=== PATIENT | male | born 1940 | race Caucasian/White ===

== ENCOUNTER 2016-04-29 05:19 | Inpatient (IN) | payer MEDICARE ==
--- NOTE | 2016-04-23 11:55 | HP ---
PATIENT: DIONNA HOSKINS MEDICAL RECORD: [id number] ACCOUNT: [id number] LOCATION:[facility] : 39 ADMISSION DATE: 04/29/16 HISTORY AND PHYSICAL EXAMINATION DIONNA Fernandez (75yo, M) ID# [id number]. Date/Time04/13/2016 11:[id number] 1939[facility] Dept.NPP_[place] ClinicProviPiedmont Fayette HospitalJOSE DIXON MDInsuranceMed Primary: [facility] Insurance # : [id number] Policy/Group # : [id number] Referring Provider Name : AMAURI MATT Employer Name : RETIRED Prescription: ORX - Member is eligible. Chief Complaint atherosclerosis of arteries of extremities CTA AFRO Patient's Care Team Referring Provider (): AMAURI MATT: [address] [place] [id number], , Patient's Pharmacies [facility] ([facility]): [address] [place] [address] [phone] [facility] [phone], , Vitals BP:140/80 sitting R arm 04/13/2016 11:08 am 150/82 sitting L arm 04/13/2016 11:08 amHR:66R/R 04/13/2016 11:08 amHt:5 ft 8 in 04/13/2016 11:08 amWt:142 lbs 04/13/2016 11:06 amBMI:21.6 04/13/2016 11:08 amAllergies Reviewed Allergies NKDAMedications Reviewed Medications Cipro 500 mg tablet Take 1 tablet(s) every 12 hours by oral route.04/11/16 enteredKathy Wilsondiclofenac potassium 50 mg tablet Take 1 tablet(s) twice a day by oral route as needed.04/11/16 enteredKathy Wilsondiclofenac sodium 75 mg tablet,delayed release one tab twice daily03/11/16 filledPRESCRIPTION SOLUTIONSFluzone High-Dose [id number] (PF) 180 mcg/0.5 mL intramuscular syringe ADM 0.5ML IM UTD103/20/15 filledPRESCRIPTION SOLUTIONSglipiZIDE ER 10 mg tablet, extended release 24 hr one tab before jmszcyvpo23/14/16 filledPRESCRIPTION SOLUTIONSmetFORMIN 1,000 mg tablet one tab twice daily10/19/15 filledPRESCRIPTION SOLUTIONSOneTouch Delica Lancets 33 gauge04/04/16 filledPRESCRIPTION SOLUTIONSOneTouch Ultra Test xbihox01/14/17 filledPRESCRIPTION SOLUTIONSOneTouch Ultra2 kit04/24/15 filledPRESCRIPTION SOLUTIONSpravastatin 40 mg tablet one tab at jmczolb32/13/16 filledPRESCRIPTION SOLUTIONS Problems Reviewed Problems Atherosclerosis of arteries of the extremities - Onset: 04/11/2016, Bilateral Family History Discussed Family History Social History Discussed Social History Cardiology HISTORY AND PHYSICAL [id number] DIONNA HOSKINS Smoking Status: Former smoker High Cholesterol: Y Overweight: N Obese: N Diabetes: Y Surgical History Reviewed Surgical History Past Medical History Discussed Past Medical History Circulation Problems: Y Diabetes: Y Peripheral Vascular Disease (PVD): Y Notes: high cholesterol, active cellulitis L foot 04/11/16 Documents for Discussion N/A Screening None recorded. HPI Peripheral Vascular Disease Reported by patient. Location: calf ("left leg hurts at rest and when I am using it."); foot ("left 4th toe has healing sore") Quality: cramping; burning Severity: interferes with normal activity previous ulceration left foot Respiratory left foot Left hip and thigh pain Inability to ambulate more than a few feet ROS Patient reports exercise intolerance but reports no fever, no night sweats, no significant weight gain, and no significant weight loss. He reports cough but reports no wheezing, no shortness of breath, and no coughing up blood. He reports muscle aches, muscle weakness, and arthralgias/joint pain but reports no back pain and no swelling in the extremities. He reports numbness (peripheral neuropathy) but reports no loss of consciousness, no weakness, no seizures, no dizziness, and no headaches. He reports fatigue. He reports no dry eyes, no irritat ion, and no vision change. He reports no difficulty hearing and no ear pain. He reports no frequent nosebleeds and no nose/sinus problems. He reports no sore throat, no bleeding gums, no snoring, no dry mouth, no mouth ulcers, no oral abnormalities, and n o teeth problems. He reports no jugular vein distension and no swollen glands. He reports no chest pain, no arm pain on exertion, no shortness of breath when walking, no shortness of breath when lying down, no palpitations, and no known heart murmur. He re p orts no abdominal pain, no vomiting, normal appetite, no diarrhea, not vomiting blood, no nausea, and no constipation. He reports no incontinence, no difficulty urinating, no hematuria, and no increased frequency. He reports no abnormal mole, no jaundice, and no rashes. He reports no depression, no sleep disturbances, feeling safe in relationship, and no alcohol abuse. He reports no swollen glands and no bruising. He reports no runny nose, no sinus pressure, no itching, no hives, and no frequent sneezing. ROS as noted in the HPI Physical Exam Patient is a 75-year-old male. Constitutional: General Appearance healthy-appearing and thin. Level of Distress HISTORY AND PHYSICAL [id number] DIONNA HOSKINS. Ambulation ambulation with cane. Cardiovascular: Apical Impulse not displaced or no thrill. Heart A uscultation normal s1 and s2; no murmurs, rubs, or gallops; and RRR. Arterial Pulses no abdominal aorta bruits, femoral bruits, or popliteal bruits; femoral diminished (right) and not palpable (the left); popliteal not palpable (the left) and dorsalis pedis not palpable (bilaterally); and 2+ bilateral, carotid 2+ bilateral, and femoral 2+ bilateral. Edema no edema or varicosities. Lungs: Repiratory Effort no dyspnea. Percussion no dullness or flatness and hyperresonance . Auscultation no wheezing, rhonchi, or rales / crackles and breathing sounds normal, good air movement, and CTA except as noted. Abdomen: Bowl Sounds normal. Inspection and Palpation no tenderness, guarding, masses, or rebound tenderness and soft and non-distended. Liver non-tender and no hepatomegaly. Spleen non-tender and no splenomegaly. Hernia none palpable. Musculoskeletal System: Gait And Stance normal gait and stance and wide-based. Digits and Nails normal nails, no cyanosis, and abnormal nails. Joints, Bones, and Muscles limited ROM and abnormal strength. Neurologic: Cranial Nerves grossly intact. Reflexes DTRs 2+ bilaterally throughout. Sensation abnormal (lower extremity peripheral neuropathy). Lymph Nodes: Lymph Nodes no cervical LAD, supraclavicular LAD, axillary LAD, or inguinal LAD. Eyes: Lids and Conjunctivae no discharge or pallor and non-injected. Pupils PERRLA. Cornea grossly intact. EOM EOMI. Lens clear. Sclerae non-icteric. Neck: Neck no masses, enlarged lymph nodes, or carotid bruits and supple and trachea midline. Thyroid no enlargement or nodules and non-tender. Skin: Inspection and Palpation no rash, lesions, ulcers, jaundice, or abnormal nevi. Assessment / Plan atherosclerosis lower extremity with rest pain 1. Atherosclerosis of arteries of the extremities I70.223: Atherosclerosis of [place] arteries of extremities with rest pain, bilateral legs 2. 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
[2016-04-28 15:19] LABS: HEMATOCRIT 37.9 % (42.0-54.0); HEMOGLOBIN 12.6 g/dL (13.5-17.5); MCH 31.2 pg (26.0-34.0); MCHC 33.2 g/dL (31.0-37.0); MCV 93.8 fL (80.0-100.0); MEAN PLATELET VOLUME 9.2 fL (7.4-10.4); RBC 4.04 10x6/uL (4.20-6.10); RDW 13.4 % (11.5-14.5); WBC 6.1 10x3/uL (4.8-10.8)
[2016-04-28 15:25] LABS: APPEARANCE CLEAR (CLEAR); COLOR YELLOW (YELLOW); GLUCOSE 100 mg/dL (NEGATIVE); LEUKOCYTE ESTERASE NEGATIVE (NEGATIVE); NITRITE NEGATIVE (NEGATIVE); PROTEIN NEGATIVE (NEGATIVE); SPECIFIC GRAVITY 1.015 (1.005-1.020)
[2016-04-28 15:26] LABS: BILIRUBIN NEGATIVE (NEGATIVE); KETONE NEGATIVE (NEGATIVE); UROBILINOGEN NORMAL (NORMAL)
[2016-04-28 15:32] LABS: INR 1.04 (0.85-1.17); PROTIME 13.4 SECONDS (11.6-15.0)
[2016-04-28 15:34] LABS: ALBUMIN 4.1 g/dL (3.4-5.0); ALKALINE PHOSPHATASE 65 U/L (46-116); ALT (SGPT) 11 U/L (10-68); BILIRUBIN - TOTAL 0.33 mg/dL (0.2-1.3); CALC OSMOLALITY 286 mosm/kg (275-300); CARBON DIOXIDE 28.8 mmol/L (21.0-32.0); CHLORIDE - SERUM 102 mmol/L (98-107); CREATININE - SERUM 0.9 mg/dL (0.6-1.3); GLUCOSE 176 mg/dL (74-106); POTASSIUM - SERUM 4.6 mmol/L (3.5-5.1); PROTEIN - SERUM 7.1 g/dL (6.4-8.2); SODIUM 140 mmol/L (136-145); UREA NITROGEN 23 mg/dL (7-18); eGFR NON AFRICAN AMERICAN 87 mL/min (90-120)
[~2016-04-29] VITALS: Ht 172.7 cm; Wt 69.4 kg
[2016-04-29] VITALS (43 sets, daily range): BP systolic 111–156; BP diastolic 43–74; BMI 21.6; BMI 23.3
[~2016-04-29 05:19] MED LIST: BAYER CHEWABLE81 MG PO; GLUCOPHAGE1000 MG PO; GLUCOTROL XL 1010 MG PO; MAGNESIUM OXID250 MG PO; MULTIPLE VITAMI1 TA1 PO; MUPIROCIN22 GM TOPICAL; PRAVACHOL40 MG PO; VITAMIN B COMPL1 TAB PO; VOLTAREN75 MG PO
[2016-04-29] MEDS ORDERED: GABAPENTIN100 MG PO (05:33)
--- NOTE | 2016-04-29 13:50 | NUR ---
PT ARRIVED TO UNIT VIA BED. PT IS AWAKE, ANSWERS APPROPRIATELY. ON 10L SIMPLE MASK. HAS CRITICORE STEPHENS. LIGHT YELLOW URINE. PT HAS DRESSING TO LEFT GROIN. INTACT. NO EVIDENCE OF BLEEDING OR SWELLING. ICE PACK PLACED. PEDAL PULSES DETECTED BY DOPPLER. NS RUNNING AT 150ML. NO OTHER DRIPS AT THIS TIME. HAS RIGHT RADIAL ART LINE. BP IS 147/62. HR 90. CVP 6. SATS 97%. RESP 11.
--- NOTE | 2016-04-29 14:10 | NUR ---
HEELS BRIDGED. NO SCD'S OR SANGEETHA'S.
[2016-04-29 14:41] LABS: HEMATOCRIT 31.6 % (42.0-54.0); HEMOGLOBIN 10.4 g/dL (13.5-17.5)
--- NOTE | 2016-04-29 15:13 | NUR ---
FAMILY AT BEDSIDE. PT C/O "SORENESS" AT LEFT SIDE/UPPER ABDOMEN.
--- NOTE | 2016-04-29 15:22 | NUR ---
PEDAL PULSES PALPABLE BILATERALLY
--- NOTE | 2016-04-29 17:00 | NUR ---
PT AWAKE. DINNER TRAY OFFERED. DENTURES PLACED IN MOUTH. PT ATE ABOUT 25% OF DINNER. VERY CONVERSANT AT THIS TIME.
--- NOTE | 2016-04-29 18:00 | NUR ---
INCENTIVE SPIROMETRY PERFORMED. PT REACHED 2,000 AND 2,250.
--- NOTE | 2016-04-29 18:03 | NUR ---
PT RESTING QUIETLY. REQUESTED SOME DECAF COFFEE. A CUP WAS PROVIDED TO HIM. HE DENIES ANY OTHER NEEDS AT THIS TIME. BP 122/46. HR 105
--- NOTE | 2016-04-29 18:45 | NUR ---
DR DIXON CALLED, HAS REVIEWED PT XRAY FROM THIS EVENING. SAYS LOOKS GOOD. PT AND FAMILY NOTIFIED IMAGING IS GOOD.
--- NOTE | 2016-04-29 19:00 | NUR ---
PT AOX4, BEDREST WITH LEGS STRAIGHT AT THIS TIME. HOB 27 DEGREES. LT GROIN WITH DSG CDI, NO S/S OF HEMATOMA. PEDAL PULSES PRESENT. HR 97 ON MONITOR, NSR WITH FIRST DEGREE BLOCK. CLEVIPREX INFUSING TO MAINTAIN BP WITHIN GIVEN PARAMETERS. LUNG SOUNDS CLEAR/DIMINISHED WITH LT LOWER LOBE SOUNDS ABSENT. STEPHENS CATH INTACT WITH CLEAR YELLOW URINE TO BEDSIDE DRAINAGE. DENIES NEEDS AT THIS TIME. CALL LIGHT WITHIN PT REACH. ROOM VISIBLE FROM NURSES STATION. CPOC.
--- NOTE | 2016-04-29 21:10 | NUR ---
NO VISITORS AT THIS TIME. FAMILY UPDATE GIVEN VIA PHONE CALL. HS MEDS GIVEN. FRESH WATER TO BEDSIDE. LT GROIN SOFT, NO S/S OF HEMATOMA. PEDAL PULSES PRESENT. VOICES NO FURTHER NEEDS AT THIS TIME. CALL LIGHT AND BEDSIDE TABLE WITHIN PT REACH. CPOC.
--- NOTE | 2016-04-29 23:00 | NUR ---
REASSESSMENT COMPLETE, SEE FLOWSHEET FOR ALL FINDINGS. LT GROIN SOFT, NO S/S OF HEMATOMA. PEDAL PULSES PRESENT. PT REPOSITIONED FOR COMFORT WITH MINIMAL ASSISTANCE. NO C/O PAIN AT THIS TIME. VOICES NO FURTHER NEEDS. CALL LIGHT AND BEDSIDE TABLE WITHIN PT REACH. CPOC.
[2016-04-30] VITALS (89 sets, daily range): BP systolic 106–149; BP diastolic 43–81
--- NOTE | 2016-04-30 01:11 | NUR ---
PT SLEEPING QUIETLY WITH VSS, NO S/S OF PAIN OR ACUTE DISTRESS. PT ALLOWED TO CONTINUE SLEEPING UNDISTURBED AT THIS TIME. CALL LIGHT AND BEDSIDE TABLE WITHIN PT REACH. CPOC.
--- NOTE | 2016-04-30 03:16 | NUR ---
REASSESSMENT COMPLETE, SEE FLOWSHEET FOR ALL FINDINGS. SHALLOW RESPIRATIONS, DIMINISHED LUNG SOUNDS. NSR ON MONITOR. CLEVIPREX REMAINS INFUSING. LT GROIN SOFT, NO S/S OF HEMATOMA. PEDAL PULSES PRESENT. NO C/O PAIN AT THIS TIME. REQUIRES MINIMAL ASSISTANCE REPOSITIONING FOR COMFORT. HOB @ 30 DEGREES. VOICES NO FURTHER NEEDS AT THIS TIME. CALL LIGHT AND BEDSIDE TABLE WITHIN PT REACH. CPOC.
--- NOTE | 2016-04-30 04:15 | NUR ---
FRESH COFFEE TO BEDSIDE PER REQUEST. IS WITH GOOD EFFORT REACHING 2500. NO C/O PAIN AT THIS TIME. PARTIAL LINEN CHANGE. DENIES FUTHER NEEDS AT THIS TIME. CALL LIGHT AND BEDSIDE TABLE WITHIN PT REACH. CPOC.
[2016-04-30 06:07] LABS: HEMATOCRIT 31.3 % (42.0-54.0); HEMOGLOBIN 10.2 g/dL (13.5-17.5); MCHC 32.6 g/dL (31.0-37.0); MCV 95.1 fL (80.0-100.0); MEAN PLATELET VOLUME 9.2 fL (7.4-10.4); RBC 3.29 10x6/uL (4.20-6.10); RDW 13.7 % (11.5-14.5); WBC 7.3 10x3/uL (4.8-10.8)
[2016-04-30 06:21] LABS: ALBUMIN 3.1 g/dL (3.4-5.0); ALKALINE PHOSPHATASE 44 U/L (46-116); ALT (SGPT) 12 U/L (10-68); BILIRUBIN - TOTAL 0.44 mg/dL (0.2-1.3); CALC OSMOLALITY 284 mosm/kg (275-300); CALCIUM 7.7 mg/dL (8.5-10.1); CARBON DIOXIDE 30.6 mmol/L (21.0-32.0); CHLORIDE - SERUM 106 mmol/L (98-107); CREATININE - SERUM 0.7 mg/dL (0.6-1.3); GLUCOSE 122 mg/dL (74-106); PROTEIN - SERUM 5.6 g/dL (6.4-8.2); SODIUM 143 mmol/L (136-145); UREA NITROGEN 9 mg/dL (7-18); eGFR NON AFRICAN AMERICAN > 90 mL/min (90-120)
--- NOTE | 2016-04-30 07:05 | NUR ---
REPORT RECD PT CARE ASSUMED. PT ALERT AND ORIENTED X 4. S1S2 NOTED, 1ST DEGREE BLOCK NOTED. LUNG SOUNDS CLEAR BILAT, PT HAS NC @ 4L. PT HAS INCISION SITE TO LEFT GROIN. SITE IS SUPPLE NO ECCYMOSIS/HEMATOMA NOTED. DRSG CDI. PP TO RIGHT LEG DOPPLERED. LEG IS WARM, PINK, CMS INTACT. PT HAS RT RADIAL ART LINE, GOOD WAVE FORM, CMS INTACT TO RT EXTREMITY. STEPHENS D/C AT THIS TIME. HOB ELEVATED < 30 DEGREES. PT HAS CLEVIPREX INFUSING AT 7 MG/HR, WILL TITRATE PER ORDERS.
--- NOTE | 2016-04-30 07:35 | NUR ---
PT BREAKFAST TRAY PROVIDED. PT PULLED UP IN BED FOR COMFORT. PT CONSUMES 65% OF BREAKFAST.
--- NOTE | 2016-04-30 08:00 | NUR ---
PT DOES WELL WITH IS. GOOD EFFORT, MAX OF 2300
--- NOTE | 2016-04-30 09:00 | NUR ---
A-LINE REMOVED AT THIS TIME. EXTREMITY ELEVATED AND PRESSURE HELD. CLEAN DRSG APPLIED. DRESSING TO GROIN CHANGED AT THIS TIME. PT AT BEDSIDE FOR VISITATION.
--- NOTE | 2016-04-30 11:53 | NUR ---
PT UP WITH PHYSICAL THERAPY. PT AMBULATES ABOUT 110FT. PT SITTING UP IN CHAIR AT THIS TIME.
--- NOTE | 2016-04-30 13:38 | OP ---
PATIENT NAME: DIONNA HOSKINS MEDICAL RECORD: [id number] :38 LOCATION:[facility] ADMISSION DATE:04/29/16 SURGEON: SALOMON DIXON MD DATE OF OPERATION: 04/29/2016 SURGEON: Salomon Dixon MD. ANESTHESIA: General endotracheal by Dr. Leigh. OPERATION PERFORMED: 1. Left common femoral and profunda femoral endarterectomy with patch angioplasty. 2. Right retrograde, 4-V[place] Citizen, 6-V[place] Citizen sheath placed in the common femoral artery. 3. Retrograde, 4-Vatican Citizen 7-Vatican Citizen external iliac artery sheath placement. 4. Right retrograde external iliac arteriogram. 5. Left retrograde external iliac arteriogram. 6. 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 7. Aortogram. 8. Angioplasty left common iliac artery and external iliac artery utilizing a 4-mm balloon. 9. Angioplasty of the left common iliac artery and external iliac artery with a 6-V[place] Citizen balloon. 10. Kissing stent right common iliac artery 7 x 39, left common iliac artery 7 x 59. 11. Left external iliac artery SMART stent 8 x 60. 12. Left superficial femoral sheath placement. 13. Left superficial femoral artery arteriogram. 14. Diamondback atherectomy, left superficial femoral artery. 15. Drug-coated balloon 5 x 150, left superficial femoral artery. 16. Superficial femoral arteriogram demonstrates good flow from the common femoral artery to the trifurcation vessels below the knee. 17. Patch angioplasty left common femoral, superficial femoral and external iliac artery. PREOPERATIVE DIAGNOSIS: Severe atherosclerosis of the left and right lower extremity with rest pain and ulceration. POSTOPERATIVE DIAGNOSES: 1. Total occlusion of the left common iliac artery and high-grade stenosis of the right common iliac artery. 2. Severe stenosis of the left external iliac artery. 3. 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 4. High-grade stenosis of the left superficial femoral artery. INDICATION FOR OPERATION: Rest pain and ulceration. FLUOROSCOPY TIME: 16 minutes 48 seconds. CONTRAST: 117 mL. FINDINGS OF THE OPERATION: 1. Right external iliac arteriogram demonstrates diffuse disease with severe stenosis at the takeoff of the right common iliac artery. OPERATIVE REPORT [id number] DIONNA HOSKINS 2. Left retrograde external iliac arteriogram demonstrates total occlusion of the left common iliac artery and high-grade stenoses in the left external iliac artery. 3. 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 4. Aortogram. 5. Angioplasty 4-[place] Citizen balloon, left external iliac artery and left common iliac artery. 6. Angioplasty 6 mm balloon, left external iliac artery and left common iliac artery. 7. Bilateral kissing stents 7 x 39 on the right and a 7 x 159 on the left demonstrates good open bifurcation with good flow into the external iliacs bilaterally. The left external iliac artery had high-grade stenosis. 8. An 8 x 60 SMART stent placed in the left external iliac artery demonstrates good result with no residual stenosis. 9. Left superficial femoral arteriogram demonstrates high-grade stenosis in its mid portion and diffuse disease to the adductor canal with flow to the trifurcation vessels. 10. Status post Diamondback atherectomy demonstrates much improved flow through the area; however, suboptimal, therefore, a 5 x 150 drug-coated balloon was used to dilate the distal superficial femoral artery and high-grade stenosis with no residual stenotic areas. ESTIMATED BLOOD LOSS: Less than 200 mL DESCRIPTION OF PROCEDURE: After informed consent and adequate preoperative medication evaluation, the patient was brought to the operating room, placed on the table in the supine position. After induction of general endotracheal anesthesia and application of appropriate monitoring devices, the abdomen, groins and left leg were prepped and draped in a sterile field utilizing Betadine scrub, alcohol and Betadine solution. A Betadine-impregnated drape was also used. An oblique incision was made above the inguinal ligament on the left, dissection carried down to fascia. Hemostasis maintained with electrocautery. The external iliac, common femoral, profunda femoral and superficial femoral arteries were dissected free of surrounding structures and encircled with vessel loops. Attention was then turned toward the right groin. Utilizing a micropuncture technique, a 4-[place] Citizen sheath was placed in the right common femoral artery retrogradely. This was exchanged for a 6-[place] Citizen sheath. A retrograde arteriogram demonstrates the stenotic area at the takeoff of the aorta and right common iliac artery. Attention was then turned back toward the left groin and the patient had been given a calculated dose of protamine the sheath was placed and the left external iliac artery was accessed with a micropuncture technique and a 4-[place] Citizen sheath partially placed in the artery due to obstruction and retrograde arteriogram was obtained. Utilizing a [place] floppy wire and multiple attempts, a wire was manipulated into the aorta. A 4-mm balloon was then used to dilate bareback from the bifurcation of the aorta to the groin. An arteriogram was performed, a 6-[place] Citizen balloon was then used to dilate the left common iliac and external iliac artery. Exchanges were made for Amplatz wires bilaterally utilizing the balloon expandable stents. They were placed at the aortic bifurcation and inflated, arteriogram demonstrated good position and no residual stenosis. Attention was then turned toward the left external iliac artery, there was still diffuse high grade disease; therefore, an 8 x 60 SMART stent was deployed from the previous stent into the external iliac artery, post-dilation demonstrated no residual stenosis. Attention was then turned below the common femoral and profunda femoral arteries, which were chronically occluded. A puncture was made of the superficial femoral artery, a OPERATIVE REPORT [id number] DIONNA HOSKINS 4-V[place] Citizen sheath placed and arteriogram demonstrated the anatomy and a 5-[place] Citizen sheath placed. An arteriogram was performed that demonstrated high-grade stenosis in the mid superficial femoral artery and diffuse disease to the adductor canal. A wire was manipulated into the distal infrageniculate vessels on the left and a 0.035 catheter was placed followed by exchange for a Viper wire. Utilizing the Diamondback, an atherectomy was performed in the mid and distal superficial femoral artery to the level of the adductor canal. This greatly improved flow; however, was suboptimal. A 5 x 150 drug-coated balloon was then used to dilate the superficial femoral artery with a good result. Attention was then turned toward the left groin. The sheath wires and catheters were removed and clamps were applied to the distal iliac artery on the left and superficial femoral artery. The arteriotomy was made and extended with Gutierrez scissors. The artery was totally occluded at the common femoral artery and profunda femoral artery. Utilizing sharp dissection, the endarterectomy was performed with removal of plaque from the superficial femoral artery, profunda femoral artery, common femoral artery and left external iliac artery. Artery underwent extensive debridement and irrigation. Utilizing a CorMatrix vascular patch and a running 6-0 Prolene suture, the arteriotomy was closed with a patch angioplasty technique. All maneuvers to remove trapped air were performed. The clamps were removed sequentially. The patient was given a calculated dose of protamine to reverse the heparin. Hemostasis was achieved. The wound was irrigated with copious amounts of antibiotic solution and normal saline. There was excellent flow through the vessels by Doppler. The wound was again irrigated. Instrument count and sponge count were correct times 2. Wounds were closed in layers utilizing 2-0 Vicryl on deep subcutaneous tissue, 3-0 Vicryl on superficial subcutaneous tissues. Skin approximated with 5-0 subcuticular Monocryl. Sterile dressings were applied. The patient tolerated the procedure well and was transferred to the cardiovascular ICU in stable condition. 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
--- NOTE | 2016-04-30 14:33 | NUR ---
PT REMAINS SITTING UP IN CHAIR. PT PROVIDED WITH COFFEE AND WARM BLANKET. NO OTHER REQUESTS OR COMPLAINTS AT THIS TIME. VSS.
--- NOTE | 2016-04-30 15:15 | NUR ---
PT ASSISTED BACK TO BED AT THIS TIME. FAMILY AT BEDSIDE FOR VISIATION. CLEVIPREX OFF AT THIS TIME. WILL MONITOR BP.
--- NOTE | 2016-04-30 16:35 | NUR ---
PT AMBULATES WITH PT AND IS UP TO CHAIR TO EAT DINNER.
--- NOTE | 2016-04-30 18:00 | NUR ---
PT ASSISTED BACK TO BED.
--- NOTE | 2016-04-30 19:00 | NUR ---
PT AOX4. RESTING COMFORTABLY. UNLABORED RESPIRATIONS, 4L O2, SPO2 97. NSR ON MONITOR. LT GROIN SOFT WITH NO S/S OF HEMATOMA, DSG CDI. PEDAL PULSES PRESENT. CLEVIPREX CURRENTLY INFUSING TO MAINTAIN BP WITHIN GIVEN PARAMETERS. PT REPOSITIONS SELF IN BED INDEPENDENTLY. PARTIAL LINEN CHANGE COMPLETE. VOICES NO FURTHER NEEDS AT THIS TIME. CALL LIGHT AND BEDSIDE TABLE WITHIN PT REACH. CPOC.
--- NOTE | 2016-04-30 21:05 | NUR ---
HS MEDS GIVEN. FRESH WATER TO BEDSIDE. FAMILY UPDATED VIA PHONE. VSS. DENIES PAIN AT THIS TIME. DENIES FURTHER NEEDS AT THIS TIME. CALL LIGHT AND BEDSIDE TABLE WITHIN PT REACH. CPOC.
--- NOTE | 2016-04-30 23:00 | NUR ---
REASSESSMENT COMPLETE, SEE FLOWSHEET FOR ALL FINDINGS. PT RESTING COMFORTABLY. UNLABORED RESPIRATIONS. LT GROIN SOFT, NO S/S OF HEMATOMA. PEDAL PULSES PRESENT. DENIES PAIN AT THIS TIME. DENIES FURTHER NEEDS AT THIS TIME. CALL LIGHT AND BEDSIDE TABLE WITHIN PT REACH. CPOC.
[2016-05-01] VITALS (25 sets, daily range): BP systolic 20–142; BP diastolic 45–85
--- NOTE | 2016-05-01 01:00 | NUR ---
PT SLEEPING QUIETLY WITH UNLABORED RESPIRATIONS. NO S/S OF PAIN OR ACUTE DISTRESS NOTED AT THIS TIME. VSS. PT ALLOWED TO CONTINUE SLEEPING UNDISTURBED AT THIS TIME. CPOC.
--- NOTE | 2016-05-01 03:33 | NUR ---
REASSESSMENT COMPLETE, SEE FLOWSHEET FOR ALL FINDINGS. VSS, NO S/S OF PAIN. LT GROIN SOFT, NO S/S HEMATOMA. PEDAL PULSES PRESENT. PT REPOSITIONED FOR COMFORT. NO S/S OF ACUTE DISTRESS NOTED. IS WITH GOOD EFFORT, PULLLING 2000. DENEIS NEEDS AT THIS TIME. CALL LIGHT AND BEDSIDE TABLE WITHIN PT REACH. CPOC.
[2016-05-01 06:20] LABS: HEMATOCRIT 31.8 % (42.0-54.0); MCH 30.2 pg (26.0-34.0); MCHC 31.4 g/dL (31.0-37.0); MCV 96.1 fL (80.0-100.0); MEAN PLATELET VOLUME 9.2 fL (7.4-10.4); RBC 3.31 10x6/uL (4.20-6.10); RDW 13.7 % (11.5-14.5); WBC 7.3 10x3/uL (4.8-10.8)
--- NOTE | 2016-05-01 06:20 | NUR ---
PARTIAL LINEN CHANGE. VSS, DENIES PAIN. FRESH COFFEE TO BEDSIDE PER REQUEST. LT GROIN SOFT WITH NO S/S OF HEMATOMA. PEDAL PULSES PRESENT. DENIES FURTHER NEEDS AT THIS TIME. CALL LIGHT AND BEDSIDE TABLE WITHIN PT REACH. CPOC.
[2016-05-01 06:36] LABS: ALBUMIN 2.9 g/dL (3.4-5.0); ALKALINE PHOSPHATASE 53 U/L (46-116); ALT (SGPT) 12 U/L (10-68); CALCIUM 8.1 mg/dL (8.5-10.1); CARBON DIOXIDE 30.5 mmol/L (21.0-32.0); CHLORIDE - SERUM 108 mmol/L (98-107); PROTEIN - SERUM 5.7 g/dL (6.4-8.2); SODIUM 142 mmol/L (136-145); eGFR NON AFRICAN AMERICAN 87 mL/min (90-120)
[2016-05-01 06:37] LABS: CALC OSMOLALITY 286 mosm/kg (275-300); CREATININE - SERUM 0.9 mg/dL (0.6-1.3); GLUCOSE 179 mg/dL (74-106); UREA NITROGEN 12 mg/dL (7-18)
--- NOTE | 2016-05-01 07:00 | NUR ---
REPORT RECEIVED, PATIENT IN SEMIFOWLERS POSITION WATCHING TV. ASSESSMENT COMPLETED AT THIS TIME. ONLY REQUEST WAS FOR SOME DECAF COFFEE. THIS WAS OBTAINED FOR THE PATINET.
--- NOTE | 2016-05-01 08:04 | NUR ---
NORCO GIVEN FOR C/O DISCOMFORT (NOT PAIN, PER PATIENT). NOTED THAT B/P UP SLIGHTLY WITH "DISCOMFORT" WILL MONITOR AND IF SBP DOES NOT COME DOWN, WILL RESTART CLEVIPREX.
--- NOTE | 2016-05-01 09:03 | NUR ---
PATIENT UP AMBULATING WITH PHYSICAL THERAPY. WALKS WITH A SMALL LIMP, BUT OVERALL GAIT IS PRETTY STEADY. PATIENT TALKING HE WALKS, NO SHORTNESS OF BREATH NOTED. WALKING AT PATIENTS SIDE.
--- NOTE | 2016-05-01 09:13 | NUR ---
PATIENT AMBULATED 750 FT WITH PHYSICAL THERAPY, IS NOW SITTING IN CHAIR AT BEDSIDE TALKING WITH . LINENS CHANGED. PATIETN AND DENY NEEDS AT THIS TIME.
--- NOTE | 2016-05-01 13:00 | NUR ---
ANTONIO WITH PHYSICAL THERAPY TOOK PATIENT TO BATHROOM. PATIENT URINATED IN COMMODE INSTEAD OF USING THE URINAL. WILL DOCUMENT ONE VOID.
--- NOTE | 2016-05-01 13:20 | NUR ---
PATIENT RETURNED TO BED AFTER AMBULATING 750 FT WITH PHYSICAL THERAPY. PATIENT DENIES NEEDS AT THIS TIME. LEFT WATCHING TV AND DRINKING COFFEE.
--- NOTE | 2016-05-01 15:02 | NUR ---
PATIENTS AND 2 DAUGHTERS HERE. NO QUESTIONS VOICED AT THIS TIME. PATIENT VISITING WITH THEM AT BEDSIDE.
--- NOTE | 2016-05-01 15:31 | NUR ---
PATIENTS SATS DECREASE TO 90-91% ON 2L N/C AT REST . HAVE INCREASED IT BACK TO 3L. WILL TRY SOME LATER OR HAVE FILER HELPER SEE IF THEY ARE ABLE TO WEAN SOME SINCE PATIENT DOES NOT WEAR OXYGEN AT HOME.
--- NOTE | 2016-05-01 16:28 | NUR ---
PATIENT SITTING UP ON SIDE OF THE BED EATING DINNER. DENIES NEEDS AT THIS TIME.
--- NOTE | 2016-05-01 19:00 | NUR ---
REPORT RECEIVED AND ASSESSMENT COMPLETED. SEE FLOWSHEET FOR FULL DETAILS. VSS. WILL CONTINUE TO MONITOR.
--- NOTE | 2016-05-01 21:00 | NUR ---
2100 MEDS GIVEN. NO CHANGES IN STATUS AT THIS TIME. VSS. WILL CONTINUE TO MONITOR.
--- NOTE | 2016-05-01 23:10 | NUR ---
REASSESSMENT COMPLETED. SEE FLOWSHEET. NO CHANGES IN STATUS AT THIS TIME. VSS. WILL MONITOR.
[2016-05-02] VITALS (9 sets, daily range): BP systolic 118–142; BP diastolic 56–86; Ht 172.7 cm; Wt 69.4 kg
--- NOTE | 2016-05-02 01:40 | NUR ---
0130 PROTONIX GIVEN. ASSISTED PT TO BATHROOM. NO OTHER CHANGES AT THIS TIME. VSS. WILL CONTINUE TO MONITOR.
--- NOTE | 2016-05-02 03:39 | NUR ---
REASSESSMENT COMPLETED. SEE ASSESSMENT FOR FULL DETAILS. VSS. NO OTHER CHANGES AT THIS TIME. WILL CONTINUE TO MONITOR.
--- NOTE | 2016-05-02 05:39 | NUR ---
O2 DECREASED TO 2L FROM 3. O2 SAT STABLE AT 98%. NO OTHER CHANGES AT THIS TIME. VSS. WILL CONTINUE TO MONITOR.
--- NOTE | 2016-05-02 07:15 | NUR ---
REPORT RECIEVED FROM FILM REPLACEMENT ORDERER NURSE. PT RESTING IN BED QUIETLY. NO S/SX OF ACUTE DISTRESS NOTED. VSS ON CM. ASSESSMENT COMPLETE PER FLOWSHEET. PT ASSISTED TO RECLINER. WITH NO DIFFICULTIES. CALL LIGHT AND PERSONAL ITEMS PLACED IN REACH. WILL CONT TO ASSESS FOR CHANGES.
[2016-05-02] MEDS ORDERED: PLAVIX75 MG PO (08:52)
--- NOTE | 2016-05-02 09:00 | NUR ---
LUCI WITH PT AT BEDSIDE TO WALK PT. PORTABLE MONITOR PLACED ON PT. WILL MONITOR THROUGHOUT WALK.
--- NOTE | 2016-05-02 09:34 | NUR ---
JINNY BLEVINS AT BEDSIDE TO DISCUSS DISCHARGE.
--- NOTE | 2016-05-02 10:13 | NUR ---
Patient Name: DIONNA HOSKINS Admission Status: Elective Accout number: [id number] Admission Date: 04-29-2016 : 1939 Admission Diagnosis: Attending: ELMER Current LOS: 3 Anticipated DC Date: 05-02-2016 Planned Disposition: Home Primary Insurance: [facility] Is the patient Alert and Oriented? Yes * How many steps to enter\exit or inside your home? 17 STEPS INSIDE HOME--HAS STAIRCHAIR * PCP DR ROMERO IN [place] * Pharmacy [facility] * Preadmission Environment Home with Family * ADLs Independent * Equipment Cane AVAILABLE IF NEEDED Other * Other Equipment PT HAS ELECTRIC STAIR CHAIR-- * List name and contact numbers for known caregivers / representatives who currently or will assist patient after discharge: KAYY HOSKINS, SPOUSE, --CELL * Community resources currently utilized None * Additional services required to return to the preadmission environment? No * Can the patient safely return to the preadmission environment? Yes * Has this patient been hospitalized within the prior 30 days at any hospital? No Discharge Planning Comments: CM MET WITH PATIENT TO ASSESS DC PLAN/NEEDS. PT STATED HE LIVES AT HOME WITH HIS SPOUSE AND IS INDEPENDENT IN HIS CARE/ADL'S. HE STATED HE AMBULATES WITH NO ASSISTANCE. STATED HIS WILL DRIVE HIM HOME AT DC. HE STATED HE HAS NEVER USED HH OR REHAB SERVICES IN THE PAST AND DENIED NEED FOR HH, REHAB SERVICES OR ANY ADDITIONAL DME AT DISCHARGE. VOICED HIS HOME IS A SAFE PLACE AND PLANS TO RETURN HOME WITH SPOUSE AT D/C. DC IMM SIGNED AND PLACED IN PT'S CHART. CM WILL FOLLOW AND ASSIST WITH ANY DC NEEDS THEY ARISE. Waist Fitter: Dang Segura RN, CM
--- NOTE | 2016-05-02 10:35 | NUR ---
D/C INSRUCTIONS REVIEWED WITH PT. L-DLSC REMOVED PER ORDERS. NO COMPLICATIONS NOTED UPON REMOVAL. CATHETER INTACT.
== END 2016-05-02 10:38 | disposition home or self-care (01) | DRG 271 ==
LOC: D.CVICU 05:19 → D.SDCHOLD 05:19 → D.CVICU 13:49
PROVIDERS: ADMIT Internal Medicine Cardiovascular Disease
PROC: 04UL0JZ Supplement Left Femoral Artery with Synthetic Substitute, Open Approach (ICD-10-PCS; 2016-04-29)
PROC: 047D3DZ Dilation of Left Common Iliac Artery with Intraluminal Device, Percutaneous Approach (ICD-10-PCS; 2016-04-29)
PROC: 047C3DZ Dilation of Right Common Iliac Artery with Intraluminal Device, Percutaneous Approach (ICD-10-PCS; 2016-04-29)
PROC: 047J3DZ Dilation of Left External Iliac Artery with Intraluminal Device, Percutaneous Approach (ICD-10-PCS; 2016-04-29)
PROC: 047L3ZZ Dilation of Left Femoral Artery, Percutaneous Approach (ICD-10-PCS; 2016-04-29)
PROC: B4101ZZ Fluoroscopy of Abdominal Aorta using Low Osmolar Contrast (ICD-10-PCS; 2016-04-29)
PROC: 04CL3ZZ Extirpation of Matter from Left Femoral Artery, Percutaneous Approach (ICD-10-PCS; principal; 2016-04-29 07:30)
DX: I70.248 Atherosclerosis of native arteries of left leg with ulceration of other part of lower leg (principal); I74.5 Embolism and thrombosis of iliac artery; I70.92 Chronic total occlusion of artery of the extremities; E11.9 Type 2 diabetes mellitus without complications; E78.00 Pure hypercholesterolemia, unspecified

== ENCOUNTER → 2017-07-27 11:58 | Outpatient (CLI) | payer MEDICARE ==
[2016-05-02 09:06] VITALS: BMI 23.2
[~2017-07-27 11:58] MED LIST changes: +GABAPENTIN100 MG PO; +PLAVIX75 MG PO
== END | disposition home or self-care (01) ==
LOC: D.US 07-26 14:00
DX: I65.23 Occlusion and stenosis of bilateral carotid arteries (principal)

== ENCOUNTER 2019-06-07 09:02 | Inpatient (IN) | payer MEDICARE ==
[2019-06-07] VITALS (27 sets, daily range): BP systolic 76–114; BP diastolic 29–96; BMI 22.0
[~2019-06-07] VITALS: Ht 172.7 cm; Wt 65.9 kg
--- NOTE | ~2019-06-07 | OP ---
PATIENT NAME: DIONNA HOSKINS MEDICAL RECORD: [id number] :39 LOCATION:[facility] ADMISSION DATE:06/07/19 SURGEON: DEJON CASON MD DATE OF OPERATION: 06/07/2019 PROCEDURES: 1. PTCA stent LAD. 2. PTCA stent left circumflex. 3. Left heart catheterization. 4. Selective coronary angiography. 5. Left ventriculogram. INDICATION: Angina and coronary artery disease. PROCEDURE IN DETAIL: After informed consent was obtained, after detailed description of risks, benefits as well as alternative therapies, the patient elected to proceed with angiogram and angioplasty. The right femoral area was prepped and draped in normal sterile fashion. Right femoral artery was cannulated via modified Seldinger technique with placement of 7-Canadian sheath. All catheters exchanged through this sheath. FINDINGS: The left ventriculogram was performed in the standard 30-degree PORTER view reveals global hypokinesis, ejection fraction is 30%. SELECTIVE CORONARY ANGIOGRAPHY: 1. Left main is with no significant angiographic disease. 2. Left anterior descending has 95% to 99% stenosis in the mid vessel. 3. Left circumflex has a 90% stenosis in the mid vessel and of the obtuse marginal throughout. PTCA STENT OF THE LAD: The stent used is a 3.0 x 26 mm Josh. Result was 0% residual stenosis throughout. THE PTCA STENT OF LEFT CIRCUMFLEX: The circumflex itself was ballooned with a 2.5 and 3.0 balloon. The obtuse marginal stent with a 3.0 x 8 mm [place]. Result was 0% residual stenosis. OVERALL IMPRESSION: Successful percutaneous transluminal coronary angioplasty stent of the left circumflex and LAD, both going from 90% to 99% initial stenosis to 0% residual. TRANSINT:[id number] Voice Confirmation ID: [id number] DOCUMENT ID: [id number] DEJON CASON MD CC: [id number] DICTATION DATE: 06/07/19 1254 CARE AID: [id number] [place] [address]
--- NOTE | ~2019-06-07 | EC ---
PATIENT:DIONNA HOSKINS DATE OF SERVICE: 06/07/19 SEX: M MEDICAL RECORD: [id number] DATE OF : 39 LOCATION:[place] [address] AGE OF PATIENT: 78 ADMISSION DATE: 06/07/19 REFERRING PHYSICIAN: INTERPRETING PHYSICIAN: LEEANN HERNANDEZ MD ECHOCARDIOGRAM REPORT ECHO CHARGES 4 ECHO COMPLETE Date: 06/08/19 CLINICAL DIAGNOSIS: POST PTCA ECHOCARDIOGRAPHIC MEASUREMENTS (adult normal given) AC root (d.<3.7cm) 2.9 cm LV Septum d (<1.2 cm> 1.3 cm Valve Excursion 1.9 cm LV Septum (systole) 1.7 cm Left Atria (s.<4.0cm> 3.0 cm LVPW d(<1.2cm) 0.9 cm RV (d.<2.3cm) 2.3 cm LVPW (sytole) 1.3 cm LV diastole(<5.6CM) 5.9 cm MV E-F(>70mm/sec) cm LV systole 4.8 cm LVOT Diameter 1.6 cm MV exc.(>10mm) cm Est.ejection fraction (50-75%) % DOPPLER: LVIT cm/sec A 35 cm/sec E 81 cm/sec LA cm/sec RVSP 19.1 mmHg LVOT 37 cm/sec AOP1/2T m/s Asc. Ao 85 cm/sec RVOT 61 cm/sec RA cm/sec PA 75 cm/sec AV Gradient Peak 2.9 mmHg AV Mean 2.3 mmHg AV Area 0.6 cm MV Gradient Peak 4.0 mmHg MV Mean 1.6 mmHg MV Area cm COMMENTS: Tugboat Mate: Cathie DYKES Dispatcher Ship Pilot: Dez Hernandez TAPE# PACS Pericardial Effusion N DATE OF SERVICE: 06/08/2019 PROCEDURE: Transthoracic echocardiogram. FINDINGS: Left ventricle is dilated. There is apical dyskinesis. There is anterior dyskinesis. Preserved function at the basal segments in the mid segments. Overall ejection fraction is 15% to 20%. Left atrium is normal size and function. ECHOCARDIOGRAM REPORT [id number] DIONNA HOSKINS VALVES: 1. Aortic valve appears to be normal. 2. The mitral valve has mild mitral regurgitation. 3. The tricuspid valve has mild tricuspid regurgitation. 4. The right ventricle is normal size and function. 5. The right atrium is normal size and function. There is no pericardial effusion. IMPRESSION: The patient has evidence of ischemic cardiomyopathy, moderate to severe. TRANSINT:[id number] Voice Confirmation ID: [id number] DOCUMENT ID: [id number] LEEANN HERNANDEZ MD CC: [id number] DICTATION DATE: 06/09/19 160 MAMMOGRAPHY TECH: 06/09/[id number] DIS IN 06/08/19 [facility] [address] [place] [id number]
--- NOTE | ~2019-06-07 | HEMODYNAMI ---
PATIENT:DIONNA HOSKINS MEDICAL RECORD: [id number] : 38 LOCATION:[facility] ADMISSION DATE: 06/07/19 Generatedon:06/07/201913:01 Patient name: DIONNA HOSKINS Patient #: [id number] SSN: : 1940 Date of study: 06/07/2019 Page: Of Hemodynamic Procedure Report Patient Data Patient Demographics Procedure consent was obtained First Name: DIONNA Gender: Male Last Name: GATO : 1940 Patient #: [id number] Age: 78 year(s) Race: Unknown Additional ID: [id number] Contact details [address]: [address] [place] [address] State: [place] City: [place] Zip code: [address] Past Medical History Allergies: No known allergies Admission Admission Data Admission Date: 06/07/2019 Admission Time: 9:02 Lab Results Lab Result Date: 06/07/2019 Lab Result Time: 0:00 CBC Name Units Result Min Max Hematocrit % 41.8 -*(----)-- 42 54 Hemoglobin g/dl 13.6 --(*---)-- 13.5 17.5 Procedure Procedure Types Cath Procedure Diagnostic Procedure [facility] w/Coronaries PCI Procedure Coronary Stent Coronary Stent Initial x2 PTCA PTCA Additional Hemochron ACT Test Procedure Description Procedure Date Procedure Date: 06/07/2019 Procedure Start Time: 12:16 Procedure End Time: 12:57 Procedure Staff Name Function Ciro Villalobos MD Performing Physician Maddie Valadez RT Monitor Krysta Wisdom RT Scrub Miladys Juarez RN Nurse Procedure Data Cath Procedure Fluoroscopy Diagnostic fluoroscopy Total fluoroscopy Time: time: 13.6 min 13.6 min Diagnostic fluoroscopy Total fluoroscopy dose: dose: 1509 mGy 1509 mGy Contrast Material Contrast Material Type Amount (ml) Isovue 300 184 Entry Location Entry Primary Successful Side Size Upsize Upsize Entry Closure Tatum ccessful Closure Location (Fr) 1 (Fr) 2 (Fr) Remarks Device Remarks Radial Right 6 Fr Mechanical artery Short Compression Femoral Right 7 Fr Exoseal artery Short Estimated blood loss: 10 ml Diagnostic catheters Device Type Used For End Catheter Placement DIAGNOSTIC [place] 110cm 5 Procedure Fr catheter ([id number]) Procedure Complications No complications Procedure Medications Medication Administration Route Dosage 0.9% NaCl I.V. 100 ml/hr Oxygen 4 l/min Lidocaine 2% added to field 20 Heparin Flush Bag added to field 2 bags (1000units/500ml NS) Radial Cocktail added to field 1 syringe (Verapamil 2mg/Nitro 400mcg/Heparin 1500units) Heparin Bolus I.V. 4000 units Hemodynamics Rest Pre Cath Intra NCS Post Cath Vital Signs Time Heart Resp SPO2 etCO2 NIBP Rhythm Pain Sedation Rate (ipm) (%) (mmHg) (mmHg) Status Level (bpm) 12:02:18 87 25 80 25 100/65(78) NSR 0 (11) 5(A) , No pain 12:06:22 86 22 83 11.2 100/69(82) NSR 0 (11) 5(A) , No pain 12:10:09 85 19 93 21.7 99/71(82) NSR 0 (11) 5(A) , No pain 12:14:11 86 26 92 24.7 102/68(85) NSR 0 (11) 5(A) , No pain 12:18:15 86 26 92 24.7 95/64(77) NSR 0 (11) 5(A) , No pain 12:22:16 82 25 96 23.2 91/62(76) NSR 0 (11) 5(A) , No pain 12:26:20 78 21 90 24 96/56(72) NSR 0 (11) 5(A) , No pain 12:30:24 72 26 92 15 84/58(72) NSR 0 (11) 5(A) , No pain 12:34:22 75 22 93 23.2 96/64(82) NSR 0 (11) 5(A) , No pain 12:38:23 76 24 91 26.2 93/65(77) NSR 0 (11) 5(A) , No pain 12:42:25 76 22 89 22.5 90/60(72) NSR 0 (11) 5(A) , No pain 12:46:29 77 23 93 11.2 95/52(78) NSR 0 (11) 5(A) , No pain 12:50:28 77 25 87 24 101/70(89) NSR 0 (11) 5(A) , No pain 12:54:32 79 18 81 21.7 100/68(85) NSR 0 (11) 5(A) , No pain Medications Time Medication Route Dose Verified Delivered Reason Note s Effectiveness by by 12:08:46 0.9% NaCl I.V. 100 Ciro Miladys used for ml/hr Wilfredo Juarez vice president [employer] 12:09:04 Oxygen simple 4 l/min Ciro Miladys used for mask Wilfredo Juarez vice president [employer] 12:09:10 Lidocaine 2% added 20ml Ciro Ciro for local to vial Wilfredo Villalobos MD anesthetic field 12:09:15 Heparin Flush added 2 bags Ciro Ciro used for Bag to Wilfredo Villalobos MD procedure (1000units/500ml field NS) 12:09:20 Radial Cocktail added 1 Ciro Ciro used for (Verapamil to syringe Wilfredo Villalobos MD procedure 2mg/Nitro field 400mcg/Heparin 1500units) 12:22:28 Heparin Bolus I.V. 4000 Ciro Miladys for veri fied units Wilfredo Juarez anticoagulation with Dr. JINNY Villalobos Procedure Log Time Note 11:41:19 Informed consent obtained and on chart 11:41:37 Procedure Status Elective Heart Cath (OP). 11:41:38 Time tracking: Regular hours (M-F 7:00 - 5:00) 11:41:42 Plan of Care:Hemodynamics will remain stable., Cardiac rhythm will remain stable., Comfort level will be maintained., Respiratory function will remain adequate., Patient/ family verbilizes understanding of procedure., Procedure tolerated without complication., Recovers from procedure without complications.. 11:41:54 H&P Date Dictated: 06/04/2019 Within 30 days and on chart., H&P Addendum completed by physician on day of procedure. (MUST COMPLETE FOR ALL OUTPATIENTS). 11:44:58 Patient allergic to No known allergies 11:45:18 Maddie Valadez RT(R) sent for patient. Start room use. 11:53:09 Patient received from Pre/Post Procedure Room to CCL 1 Alert and oriented. Tansferred to table in Supine position. 11:53:10 Warm blankets applied, and gisele hugger turned on for patient comfort. 11:53:10 Correct patient and procedure confirmed by team. 11:53:11 ECG and BP/O2 sat monitors applied to patient. 12:01:16 Vital chart was started 12:02:13 Pre-procedure instructions explained to patient. 12:02:14 Pre-op teaching completed and patient verbalized understanding. 12:02:15 Family available per phone call 12:02:31 Patient NPO since Midnight. 12:02:33 Is the patient allergic to Iodine/contrast media? No. 12:02:36 Is patient on blood thinner?Yes 12:02:58 ACC The patient was administered the following blood thiners within the last 24 hours: ACCPlavix 12:02:59 Patient diabetic? Yes. 12:03:02 If diabetic: On Metformin? Yes 12:03:04 If on Metformin: Last Dose? 06/06/2019 12:03:07 Previous problem with sedation/anesthesia? No ? 12:03:07 Snore? Yes 12:03:09 Sleep apnea? No 12:03:09 Deviated septum? No 12:03:10 Opens mouth fully? Yes 12:03:18 Sticks out tongue? Yes 12:03:32 Airway obstruction? No ? 12:03:33 Dentures? No ? 12:03:36 Pre procedure: right dorsailis pedis pulse 1+ Palpable, but thready & weak; easily obliterated 12:03:38 Modified Yfn's test Ulnar < 7 seconds 12:03:40 Patient pain scale 0/10 ?. 12:03:47 IV patent on arrival in left hand with 0.9% NaCl at KVO. 12:04:24 Lab Result : Hemoglobin 13.6 g/dl 12:04:24 Lab Result : Hematocrit 41.8 % 12:05:11 CHEMISTRY LAB PENDING- REDRAWN BY LAB 12:05:21 Right Radial & Right Groin area was prepped with chlora-prep and draped in sterile fashion 12:05:21 Alarms reviewed by R. N. 12:05:22 Sharps counted by scrub and verified by R.N. 12:08:08 Pt arrived to from pre/post area with SpO2 80% on RA. Simple mask placed at 4L and SpO2 93%. Pt opens eyes to stimulus but no verbal response present. No moderate sedation given. All other VSS. 12:08:46 0.9% NaCl 100 ml/hr I.V. was administered by Miladys Juarez RN; used for procedure; Verbal order read back and verified. 12:08:57 Use device set Radial Dx or PCI 12:08:58 ACIST Syringe (17340) opened to sterile field. 12:08:58 Medline Cath Pack ([id number]) opened to sterile field. 12:09:01 Bag Decanter (2002S) opened to sterile field. 12:09:01 ACIST Hand Control (05933) opened to sterile field. 12:09:01 ACIST Manifold (03092) opened to sterile field. 12:09:02 Tegaderm 4 x 4 (1626W) opened to sterile field. 12:09:03 MBrace Wrist Support (006032672) opened to sterile field. 12:09:04 Oxygen 4 l/min simple mask was administered by Miladys Juarez RN; used for procedure; Verbal order read back and verified. 12:09:05 EMERALD Guide Wire (566-503) opened to sterile field. 12:09:05 SHEATH 6FR RAIN (6616351) opened to sterile field. 12:09:10 Lidocaine 2% 20ml vial added to field was administered by Ciro Villalobos MD; for local anesthetic; Verbal order read back and verified. 12:09:15 Heparin Flush Bag (1000units/500ml NS) 2 bags added to field was administered by Ciro Villalobos MD; used for procedure; Verbal order read back and verified. 12:09:20 Radial Cocktail (Verapamil 2mg/Nitro 400mcg/Heparin 1500units) 1 syringe added to field was administered by Ciro Villalobos MD; used for procedure; Verbal order read back and verified. 12:14:00 --------ALL STOP TIME OUT------ 12:14:01 Final Timeout: patient, procedure, and site verified with staff and physician. All members of the team are in agreement. 12:14:03 Right Radial & Right Groin site verified by team. 12:14:07 Fire Safety Assessment: A--An alcohol-based skin anteseptic being used preoperatively., C--Open oxygen or nitrous oxide is being used., D--An ESU, laser, or fiber-optic light is being used. 12:14:10 Physical assessment completed. ASA score P 2 - A patient with mild systemic disease as per Ciro Villalobos MD. 12:14:23 Sedation plan: IV Moderate Sedation Medication:Versed, Fentanyl 12:14:50 unable to give GFR/ MAX DOSE.. lab still pending. okay to proceed per Dr. Villalobos 12:16:12 Procedure started. 12:16:12 Full Disclosure recording started 12:16:21 Zero performed for pressure channel P1 12:16:25 Zero performed for pressure channel P1 12:16:49 Local anesthetic to right radial artery with Lidocaine 2% by Ciro Villalobos MD.INITIAL ACCESS ONLY 12:17:04 A DIAGNOSTIC [place] 110cm 5 Fr catheter ([id number]) was advanced over the wire and used for Procedure. 12:17:58 A 6 Fr Short sheath was inserted into the Right Radial artery 12:18:30 LV gram done using PORTER 12:18:37 Injector settings: Ml/sec: 5, Volume: 15, 12:18:58 EF : 30 % 12:19:29 LCA angiography performed. 12:20:22 RCA angiography performed. 12:20:37 Catheter exchanged over wire. 12:21:08 Proceeding to intervention. 12:21:13 INFLATOR Merit BasixCompak (MW7476) opened to sterile field. 12:21:14 CHOICE PT Extra Support 182cm wire ([id number]) opened to sterile field. 12:21:44 GUIDE 6FR XB 3.5 catheter ([id number]) opened to sterile field. 12:21:55 Pre PCI Site: [place] LAD has 99% stenosis. 12:22:02 6 Fr XB 3.5 guide catheter was inserted over the wire 12:22:28 Heparin Bolus 4000 units I.V. was administered by Miladys Juarez RN; for anticoagulation; verified with Dr. Villalobos Verbal order read back and verified. 12:22:46 CHOICE ES 182 wire advanced. 12:22:51 Wire advanced across lesion. 12:24:10 ACC Pre-intervention NANCIE Flow is 1. 12:24:14 Inflate balloon Inflation number: 1 A EUPHORA 2.5 x 20 Balloon ([id number]) was prepped and advanced across the Mid LAD , then inflated to 13 DOROTEO for 0:00 (min:sec) . 12:24:25 Balloon removed over the wire. 12::49 Place stent Inflation Number: 2 A PRIYA RX 3.0 x 26 stent ([id number]) was prepped and advanced across the Mid LAD . The stent was deployed at 13 DOROTEO for 0:00 (min:sec) . 12:26:16 Stent catheter was removed intact over wire. 12:26:19 Wire redirected to CIRC. 12:26:30 Wire advanced across lesion. 12:26:38 Pre PCI Site: [place] Circ has 90% stenosis. 12:27:54 The PRIYA RX 2.5 x 26 stent ([id number]) was advanced then removed because of failure to cross lesion 12:29:08 Inflation number: 1 The EUPHORA 2.5 x 20 Balloon ([id number]) was reinflated across the Mid CX , to 15 DOROTEO for 0:00 (min:sec) . 12:29:20 Inflation number: 2 The EUPHORA 2.5 x 20 Balloon ([id number]) was reinflated across the Mid CX , to 15 DOROTEO for 0:00 (min:sec) . 12:29:31 Inflation number: 3 The EUPHORA 2.5 x 20 Balloon ([id number]) was reinflated across the Mid CX , to 19 DOROTEO for 0:00 (min:sec) . 12:29:49 Balloon removed over the wire. 12:31:45 The PRIYA RX 2.5 x 26 stent ([id number]) was advanced then removed because of failure to cross lesion 12:32:05 Wire removed. 12:32:06 Guide catheter removed. 12:32:20 UPGRADING [place] SIZE 12:32:27 SHEATH 7FR [place] (VSE404) opened to sterile field. 12:32:46 Local anesthetic to right femoral artery with Lidocaine 2% by Ciro Villalobos MD.ADDITIONAL ACCESS 12:33:23 GUIDE 7FR EBU 4.0 catheter (CS4BCE83) opened to sterile field. 12:33:40 CHOICE PT Extra Support 182cm wire ([id number]) opened to sterile field. 12:34:00 A 7 Fr Short sheath was inserted into the Right Femoral artery 12:34:54 7 Fr EBU 4 guide catheter was inserted over the wire 12:36:03 CHOICE ES 182 wire advanced. 12:36:40 Wire advanced across lesion. 12:37:41 ACT drawn and resulted at 220 seconds. (normal therapeutic range 180-240 seconds). 12:37:51 Inflate balloon Inflation number: 4 A EUPHORA 3.0 x 30 Balloon ([id number]) was prepped and advanced across the Mid CX , then inflated to 13 DOROTEO for 0:00 (min:sec) . 12:38:06 Balloon removed over the wire. 12:39:49 The PRIYA RX 2.5 x 26 stent ([id number]) was advanced then removed because of failure to cross lesion 12:40:23 CHOICE PT Extra Support 182cm wire ([id number]) opened to sterile field. 12:40:44 2ND CHOICE WIRE ADVANCED ACROSS THE OM 12:42:16 Pre PCI Site: [place] OM1 has 90% stenosis. 12:42:24 Inflate balloon Inflation number: 1 A [place] EUPHORA 3.0 x 15 balloon ([id number]) was prepped and advanced across the 1st Ob [place] , then inflated to 15 DOROTEO for 0:00 (min:sec) . 12:43:00 Balloon removed over the wire. 12:43:47 Place stent Inflation Number: 2 A PRIYA RX 3.0 x 08 stent ([id number]) was prepped and advanced across the 1st Ob Kathleen . The stent was deployed at 15 DOROTEO for 0:00 (min:sec) . 12:44:02 Stent catheter was removed intact over wire. 12:46:36 Inflate balloon Inflation number: 5 A EUPHORA 2.5 x 20 Balloon ([id number]) was prepped and advanced across the Mid CX , then inflated to 21 DOROTEO for 0:00 (min:sec) . 12:47:05 Balloon removed over the wire. 12:47:55 Inflation number: 6 The NC EUPHORA 3.0 x 15 balloon ([id number]) was reinflated across the Mid CX , to 19 DOROTEO for 0:00 (min:sec) . 12:48:17 Balloon removed over the wire. 12:49:13 Wire removed. 12:49:13 Guide catheter removed. 12:49:33 EXOSEAL 7Fr (EX700) opened to sterile field. 12:49:34 ZEPHYR REGULAR TR BAND (953686) opened to sterile field. 12:49:45 Sheath removed intact; hemostasis achieved with Exoseal to the Right Femoral artery. 12:49:55 Sheath removed intact; hemostasis achieved with Mechanical Compression to the Right Radial artery. 12:50:04 Procedure ended.(Physican Out) 12:51:45 Fluoroscopy time 13.60 minutes. 12:51:49 Fluoroscopy dose: 1509 mGy 12:51:49 Flurop Dose total: 1509 12:51:55 Dose Area Product 46424 mGy/cm. 12:51:59 Contrast amount:Isovue 300 184ml. 12:52:01 Sharps counted by scrub and verified by R.N. 12:52:05 [place] band inflated with 10cc of air. 12:52:11 Post-op/insertion site Right Femoral artery dressed using a 4 x 4 and Tegaderm. 12:52:17 Post-procedure physical assessment completed. ASA score P 2 - A patient with mild systemic disease as per Ciro Villalobos MD. 12:52:20 Post procedure rhythm: sinus rhythm 12:52:23 Estimated blood loss: 10 ml 12:53:09 Post procedure instruction explained to patient.Patient verbalizes understanding. 12:53:09 Patient needs reinforcement of post procedure teaching. 12:55:50 Procedure type changed to Cath procedure, Diagnostic procedure, LHC, C w/Coronaries, PCI procedure, Coronary Stent, Coronary Stent Initial x2, PTCA, PTCA Additional, Hemochron ACT Test 12:57:06 Procedure and supply charges have been captured, reviewed, submitted and are correct. 12:57:10 Procedure Complication : No complications 12:57:12 Vital chart was stopped 12:57:18 [facility] Findings: MVD- PCI performed (see procedure note) 12:57:22 Operative report dictated upon procedure completion. 12:57:22 See physician's report for complete and final results. 12:57:24 Report given to Pre/Post Procedure Room. 12:57:27 Patient transfered to Pre/Post Procedure Room with Bed. 12:57:29 Procedure ended. 12:57:29 Full Disclosure recording stopped 12:57:37 ACC-PCI Only Patient was given prescriptions, or instructed by Ciro Villalobos MD to start/continue the following medications upon discharge: Plavix 12:57:38 End room use (Document Last) 13:00:04 End room use (Document Last) 13:00:29 End room use (Document Last) Intervention Summary Intervention Notes Time ActionType Lesion and Equipment Used Action# Pressure Duration Attributes 12:24:14 Inflate Mid LAD EUPHORA 2.5 x 1 13 00:00 balloon 20 Balloon ([id number]) 12:25:49 Place stent Mid LAD PRIYA RX 3.0 x 2 13 00:00 26 stent ([id number]) 12:27:54 Discard PRIYA RX 2.5 x Stent 26 stent ([id number]) 12:29:08 Reinflate Mid CX EUPHORA 2.5 x 1 15 00:00 balloon 20 Balloon ([id number]) 12:29:20 Reinflate Mid CX EUPHORA 2.5 x 2 15 00:00 balloon 20 Balloon ([id number]) 12:29:31 Reinflate Mid CX EUPHORA 2.5 x 3 19 00:00 balloon 20 Balloon ([id number]) 12:31:45 Discard PRIYA RX 2.5 x Stent 26 stent ([id number]) 12:37:51 Inflate Mid CX EUPHORA 3.0 x 4 13 00:00 balloon 30 Balloon ([id number]) 12:39:49 Discard PRIYA RX 2.5 x Stent 26 stent ([id number]) 12:42:24 Inflate 1st Ob Kathleen [place] EUPHORA 3.0 1 15 00:00 balloon x 15 balloon ([id number]) 12:43:47 Place stent 1st Ob [place] PRIYA RX 3.0 x 2 15 00:00 08 stent ([id number]) 12:46:36 Inflate Mid CX EUPHORA 2.5 x 5 21 00:00 balloon 20 Balloon ([id number]) 12:47:55 Reinflate Mid CX [place] EUPHORA 3.0 6 19 00:00 balloon x 15 balloon ([id number]) Device Usage Item Name Manufacture Quantity Catalog Number Hospital Part Current M inimal Lot# / Charge Number Stock Stock Serial# Code ACIST Syringe Acist 1 95145 460017 364906 795469 2 0 (89379) Medical Systems Inc Medline Cath Medline 1 [id number] 752043 33287 494369 5 Pack ([id number]) Bag Decanter Microtek 1 2001S 321258 83075 340079 5 (2001S) Medical Inc. ACIST Hand Acist 1 63656 579727 610636 187701 5 Control Medical (43220) Systems Inc ACIST Manifold Acist 1 31228 729191 999092 333244 5 (05441) Medical Systems Inc Tegaderm 4 x 4 3M 1 1626W 230804 230180 986111 5 (1626W) MBrace Wrist Advanced 1 140-0250-00 440224 54398 784639 5 Support Vascular ([id number]) Dynamics EMERALD Guide Cardinal 1 502-455 554013 845530 474371 5 Wire (502-455) Health SHEATH 6FR Cardinal 1 0372578 873731 0454620 394580 5 RAIN (4167407) Health DIAGNOSTIC Terumo 1 40-6483 571165 640807 553459 5 [place] 110cm 5 Fr catheter (180159) INFLATOR Merit Merit 1 CV3237 163708 181808 476060 1 5 SimpleSite (ED7325) CHOICE PT Toney 3 [id number] 009760 446796 489987 5 Extra Support Scientific 182cm wire (5402262H3) GUIDE 6FR XB Cardinal 1 [id number] 964898 798057 168426 2 3.5 catheter XConnect [employer] Networks ([id number]) EUPHORA 2.5 x Medtronic 2 [id number] 802013 943737 820779 5 [id number] 20 Balloon [id number] ([id number]) PRIYA RX 3.0 x Medtronic 1 [id number] 275115 2667645 955504 5 [id number] 26 stent ([id number]) PRIYA RX 2.5 x Medtronic 1 [id number] 485365 1093219 708230 5 [id number] 26 stent ([id number]) SHEATH 7FR Terumo 1 SUL182 560916 274690 228761 5 [place] (EVI888) GUIDE 7FR EBU Medtronic 1 [id number] 467479 868844 368378 0 4.0 catheter (YT2VZV52) EUPHORA 3.0 x Medtronic 1 [id number] 024608 318664 216514 5 [id number] 30 Balloon ([id number]) [place] EUPHORA 3.0 Medtronic 1 [id number] 546814 945177 560132 1 [id number] x 15 balloon ([id number]) PRIYA RX 3.0 x Medtronic 1 [id number] 868577 7507136 693150 5 [id number] 08 stent ([id number]) EXOSEAL 7Fr Cardinal 1 EX700 721957 398178 798194 5 (EX700) Health ZEPHYR REGULAR Cardinal 1 269967 519018 3174123 480843 5 TR [facility] XConnect [employer] Networks (698120) Signature Audit [place] Stage Time Signature Unsigned Intra-Procedure 06/07/2019 Maddie Valadez 1:00:04 PM RT(R) Intra-Procedure 06/07/2019 Miladys Juarez 1:00:29 PM RN Intra-Procedure 06/07/2019 Ciro Villalobos 1:01:21 PM [facility] [address] [place] [address]
[2019-06-07] MEDS ORDERED: FUROSEMIDE20 MG PO (09:40)
[2019-06-07] MEDS ORDERED: COREG 3.1253.125 MG PO (09:41)
[2019-06-07] MEDS ORDERED: K-TAB10 MEQ PO (09:42)
[2019-06-07] MEDS ORDERED: JANUVIA100 MG PO (09:42)
[2019-06-07 10:51] LABS: BASOPHILS 0.2 % (0-2); HEMATOCRIT 41.8 % (42.0-54.0); HEMOGLOBIN 13.6 g/dL (13.5-17.5); IMMATURE GRANULOCYTES 0.7 % (0-5); LYMPHOCYTES 9.2 % (15-50); MCH 29.6 pg (26.0-34.0); MCHC 32.5 g/dL (31.0-37.0); MCV 90.9 fL (80.0-100.0); MEAN PLATELET VOLUME 9.7 fL (7.4-10.4); MONOCYTES 9.4 % (2-11); NEUTROPHILS 79.5 % (40-80); PLATELET COUNT 277 10x3/uL (130-400); RDW 14.4 % (11.5-14.5); WBC 10.4 10x3/uL (4.8-10.8)
[2019-06-07 12:31] LABS: ANION GAP 14.1 mmol/L (8-16); CARBON DIOXIDE 27.4 mmol/L (21.0-32.0); CHOL - HDL RATIO 5.8 ratio (2.3-4.9); CREATININE - SERUM 1.4 mg/dL (0.6-1.3); POTASSIUM - SERUM 4.5 mmol/L (3.5-5.1)
--- NOTE | 2019-06-07 12:48 | NUR ---
1240- CONTACTED BY MARIAH SMITH IN LAB AND GIVEN VERBAL CRITICAL READING OF GLUCOSE OF 601 MG/DL, STATED IT MAY BE A FALSE READING DUE TO DRAWN UNDER THE SITE OF IV. PT SAMPLE REDRAWN IN MANAGER BIOLOGICS BY DR CASON AND SENT TO LAB FOR VERIFICATION. WILL AWAIT RESULTS.
--- NOTE | 2019-06-07 13:10 | NUR ---
REC'D TO ROOM 5 VIA STRETCHER FROM BARBERING INSTRUCTOR. MONITORS ESTAB. PT AROUSES TO NAME. SEE WET PROCESS ASSISTANT HEAD MILLER. ALARMS ON AND C/L IN REACH.
--- NOTE | 2019-06-07 13:22 | NUR ---
GLUCOSE 568 - DR. CASON NOTIFIED. NEW ORDER REC'D. R GRON SITE AND R WRIST SITE BOTH C/D/I, NO S/S BLEEDING OR HEMATOMA.VSS. ALRARMS ON AND C/L IN REACH.
[2019-06-07 13:23] LABS: ALBUMIN 1.8 g/dL (3.4-5.0); ANION GAP 13.5 mmol/L (8-16); BILIRUBIN - TOTAL 0.91 mg/dL (0.2-1.3); CALCIUM 7.6 mg/dL (8.5-10.1); CARBON DIOXIDE 23.5 mmol/L (21.0-32.0); CREATININE - SERUM 1.3 mg/dL (0.6-1.3); PROTEIN - SERUM 4.8 g/dL (6.4-8.2)
--- NOTE | 2019-06-07 13:55 | NUR ---
DR. CASON IN TO SEE PT. VSS. R GROIN AND R WRIST SITES C/D/I, NO S/S BLEEDING OR HEMATOMA. ALARMS ON AND C/L IN REACH.
--- NOTE | 2019-06-07 14:10 | NUR ---
R GROIN AND R WRIST SITES ARE C/D/I, NO S/S BLEEDING OR HEMATOMA. VSS. PT AWAKENS EASILY, DENIES NEEDS. C/L IN REACH. ALARMS ON .
--- NOTE | 2019-06-07 14:35 | NUR ---
FSBS 545, STAT LAB ORDERED PER POLICY AND DR. CASON NOTIFIED - NEW ORDER REC'D FOR 10 UNITS REG INSULIN SUBQ AND NO RECHECK FSBS. OK TO D/C PT HOME AT 1700 WITH IF PT REMAINS ASYMPTOMATIC.
--- NOTE | 2019-06-07 15:00 | NUR ---
R GROIN AND WRIST SITE C/D/I, NO S/S BLEEDING OR HEMATOMA. PT AWAKENS EASILY, ANSWERING APPROP. VSS. C/L IN REACH.
--- NOTE | 2019-06-07 15:35 | NUR ---
UPDATED OVER PHONE, WILL KEEP UPDATED ON GLUCOSE AND PLAN FOR D/C AT 1700.
--- NOTE | 2019-06-07 15:53 | NUR ---
LAB HERE FOR STAT GLUCOSE PREVIOUSLY ORDERED. VSS. R GROIN AND [facility] SITES C/D/I.
--- NOTE | 2019-06-07 16:00 | NUR ---
5 CC AIR REMOVED FROM Z BAND. NO S/S BLEEDING. R GROIN SITE SOFT, C/D/I. VSS.C/L IN REACH.
--- NOTE | 2019-06-07 16:17 | NUR ---
GLUCOSE 533 ON LAB. PRESCHOOL TEACHER AIDE PAGED - DR. HERNANDEZ NOTIFIED. STATUS REPORT GIVEN. NO NEW ORDERS REC'D. OK'D PT D/C HOME AND FOLLOW HOME MED ORDERS.
--- NOTE | 2019-06-07 16:30 | NUR ---
TOTAL 7CC AIR REMOVED FROM Z BAND - NO S/S BLEEDING. PT SITTING UP IN BED. GIVEN DIET COLA PER REQUEST.
--- NOTE | 2019-06-07 16:34 | NUR ---
UPDATED OVER PHONE - SHE IS OK WITH TAKING PT HOME AND WATCHING BLOOD SUGAR. ALL DISCHARGE INSTRUCTIONS REVIEWED WITH HER AND VERBALIZES UNDERSTANDING - INCLUDING RESTRICTIONS, S/S TO WATCH FOR AND CALLING FOR FOLLOW-UP APPT.
--- NOTE | 2019-06-07 16:40 | NUR ---
DR. HERNANDEZ NOTIFIED OF HYPOTENSTION AND POX DROPPING TO 84%. NEW ORDERS REC'D TO ADMIT PT TO MED CHILD CARE DEVELOPMENT SPECIALIST.
--- NOTE | 2019-06-07 16:45 | NUR ---
ALL AIR REMOVED FROM Z BAND, NO S/S BLEEDING. R GROIN SITE C/D/I.
--- NOTE | 2019-06-07 16:54 | NUR ---
PT ASSISTED UP TO SIDE OF BED, VERY WEAK. B/P 75/51 AND POX TO 84% ON RA. PT ASSISTED BACK TO BED. DR. MARY SANDERS.
--- NOTE | 2019-06-07 16:57 | NUR ---
DR. HERNANDEZ PAGED AND NOTIFIED OF DROP IN B/P AND POX, NEW ORDER REC'D TO ADMIT TO HOSPITAL TO MED HUMAN RELATIONS TEACHER.
--- NOTE | 2019-06-07 17:00 | NUR ---
PT NOTIFIED OF PT BEING ADMITTED TO HOSPITAL. WILL PASS ON IN REPORT TO UPDATE HERE. HER PT ADVOCATE FORM IS ON THE CHART.
--- NOTE | 2019-06-07 17:10 | NUR ---
DR. DO WILL BE ADMITTING PT - STATUS REPORT GIVEN AND NEW ORDERS REC'D. COMPUTER PROCESSING SCHEDULER NOTIFIED.
--- NOTE | 2019-06-07 17:30 | NUR ---
Z BAND OFF, DSG APPLIED AND WRIST IMMOBILIZER ON. PT AWARE OF BEING ADMITTED TO HOSPITAL AND THAT HAS BEEN NOTIFIED. SBP NOW 87, NO SIGNS OF DISTRESS.
[2019-06-07 17:37] LABS: BASOPHILS 0.1 % (0-2); EOSINOPHILS 0.5 % (0-7); HEMATOCRIT 38.9 % (42.0-54.0); HEMOGLOBIN 12.7 g/dL (13.5-17.5); IMMATURE GRANULOCYTES 0.8 % (0-5); LYMPHOCYTES 15.7 % (15-50); MCH 29.3 pg (26.0-34.0); MCHC 32.6 g/dL (31.0-37.0); MCV 89.6 fL (80.0-100.0); MEAN PLATELET VOLUME 9.8 fL (7.4-10.4); MONOCYTES 9.4 % (2-11); NEUTROPHILS 73.5 % (40-80); PLATELET COUNT 250 10x3/uL (130-400); RBC 4.34 10x6/uL (4.20-6.10); RDW 14.2 % (11.5-14.5)
[2019-06-07 17:39] LABS: WBC 7.3 10x3/uL (4.8-10.8)
--- NOTE | 2019-06-07 17:40 | NUR ---
REPORT CALLED TO GORDO STEARNS AND PT TRANSFERRED TO CV 3 VIA STRETCHER.
[2019-06-07 17:56] LABS: ALBUMIN 2.2 g/dL (3.4-5.0); ANION GAP 14.7 mmol/L (8-16); BILIRUBIN - TOTAL 0.79 mg/dL (0.2-1.3); CALCIUM 8.2 mg/dL (8.5-10.1); CARBON DIOXIDE 25.4 mmol/L (21.0-32.0); CREATININE - SERUM 1.3 mg/dL (0.6-1.3); POTASSIUM - SERUM 4.1 mmol/L (3.5-5.1); PROTEIN - SERUM 5.2 g/dL (6.4-8.2)
--- NOTE | 2019-06-07 18:00 | NUR ---
RIGHT GROIN SITE SOFT, NO HEMATOMA OR BLEEDING NOTED, RIGHT RADIAL SITE SOFT NO HEMATOMA OR BLEEDING NOTED. DRESSINGS C/D/I.
--- NOTE | 2019-06-07 18:03 | NUR ---
PATIENT RECEIVED FROM LOADING SHOVEL OILER VIA STRETCHER, PATIENT LETHARGIC BUT AROUSES TO STIMULUS, STATES YEAR IS 1999 AND HE IS IN [place] REORIENTED TO LOCATION AND YEAR. PATIENT WITH WEAK PALPABLE RADIAL PUSLES AND DP PULSES TO ALL EXTREMITIES, BBS - CLEAR AND EQUAL, SPO2 - 93% ON 2 LPM VIA NC. CM - SR WITH 1ST DEGREE AVB AND SINUS ARREST AT TIMES SLOWING DOWN TO 40S. PLACED IN SUPINE POSITION WITH FEET ELEVATED. NS BOLUS 500 CC INITIATED BP 78/50, CALL PLACED TO ADMITTING PHYSICIAN FOR ORDERS. 12 LEAD ECG COMPLETED - SR WITH 1ST DEGREE AVB. IV 22 GA TO LEFT FA, PATENT INFUSING NS BOLUS. KRISTINA URIZ WITH DR. DO CALLED ADVISED TO GIVE A 1 L NS BOLUS AND THAT HE WOULD BE ENROUTE TO EXAMINE PATIENT AND INPUT ORDERS.
--- NOTE | 2019-06-07 18:17 | NUR ---
FSBS - 409 MG/DL, WILL GIVE 20 UNITS OF LISPRO INSULIN, PHARMACY CONTACTED REFERENCE ORDER AND TO TUBE INSULIN TO FLOOR FOR ADMINISTRATION. BP 76/54 (60).
--- NOTE | 2019-06-07 18:31 | NUR ---
DR. DO AT ROOM UPDATED AND EXAMINES PATIENT.
--- NOTE | 2019-06-07 18:39 | NUR ---
DR. HERNANDEZ PAGED FOR CARDIOLOGY CONSULT PER DR. DO. CALLED BACK AND UPDATED ON PATIENT STATUS TO START DOPAMINE AT 5 MCG/KG/MIN TO MAINTAIN SYSTOLIC >90. DR. DO SPEAKING WITH VIA TELPHONE.
--- NOTE | 2019-06-07 19:00 | NUR ---
PATIENT DESAT TO 78%, PLACED ON NRB AT 15 LPM WITH SPO2 INCREASED TO 90%, ABG OBTAINED AND DR. DO AT ROOM.
--- NOTE | 2019-06-07 19:18 | NUR ---
SPOKE TO DR. HERNANDEZ TO ORDER SERIAL TROPONINS, START ON DOBUTAMINE GTT AT 2. 5 MCG/KG/MIN AND TO PLACE ON BIPAP. CONSULT PULMONOLOGY ORDER PLACED AND DR. DESIREE SANDERS.
--- NOTE | 2019-06-07 19:24 | NUR ---
SPOKE TO DR. RAMÍREZ, TO GET CHEST XRAY AND BIPAP SETTINGS OF 14/7 AND TITRATE O2 FOR SPO2 >92%.
[2019-06-07 21:39] LABS: NITRITE NEGATIVE (NEGATIVE)
[2019-06-07 21:40] LABS: BILIRUBIN NEGATIVE (NEGATIVE); GLUCOSE 1000 mg/dL (NEGATIVE); KETONE NEGATIVE (NEGATIVE); UROBILINOGEN NORMAL (NORMAL)
[2019-06-08] VITALS (68 sets, daily range): BP systolic 41–133; BP diastolic 22–76; Ht 172.7 cm; Wt 65.9 kg
[2019-06-08 05:35] LABS: BASOPHILS 0.2 % (0-2); EOSINOPHILS 2.1 % (0-7); HEMOGLOBIN 12.9 g/dL (13.5-17.5); IMMATURE GRANULOCYTES 0.6 % (0-5); LYMPHOCYTES 12.1 % (15-50); MCH 29.1 pg (26.0-34.0); MCHC 32.3 g/dL (31.0-37.0); MCV 90.1 fL (80.0-100.0); MEAN PLATELET VOLUME 9.9 fL (7.4-10.4); MONOCYTES 11.7 % (2-11); NEUTROPHILS 73.3 % (40-80); PLATELET COUNT 270 10x3/uL (130-400); RBC 4.44 10x6/uL (4.20-6.10); RDW 14.4 % (11.5-14.5)
[2019-06-08 05:49] LABS: WBC 10.5 10x3/uL (4.8-10.8)
[2019-06-08 05:51] LABS: ALKALINE PHOSPHATASE 91 U/L (30-120); ALT (SGPT) 31 U/L (10-68); BILIRUBIN - TOTAL 0.84 mg/dL (0.2-1.3); CALCIUM 7.9 mg/dL (8.5-10.1); CHLORIDE - SERUM 99 mmol/L (98-107); MAGNESIUM - SERUM 1.8 mg/dL (1.8-2.4); PHOSPHOROUS 3.7 mg/dL (2.5-4.9); PROTEIN - SERUM 5.4 g/dL (6.4-8.2); SODIUM 128 mmol/L (136-145); UREA NITROGEN 43 mg/dL (7-18); eGFR NON AFRICAN AMERICAN 76 mL/min (90-120)
[2019-06-08 05:52] LABS: CALC OSMOLALITY 267 mosm/kg (275-300); GLUCOSE 99 mg/dL (74-106); POTASSIUM - SERUM 3.4 mmol/L (3.5-5.1)
[2019-06-08 15:37] LABS: HEMATOCRIT 40.4 % (42.0-54.0); HEMOGLOBIN 12.9 g/dL (13.5-17.5); MCH 29.7 pg (26.0-34.0); MCHC 31.9 g/dL (31.0-37.0); RBC 4.35 10x6/uL (4.20-6.10); RDW 14.6 % (11.5-14.5); WBC 12.8 10x3/uL (4.8-10.8)
[2019-06-08 15:47] LABS: MCV 92.9 fL (80.0-100.0)
--- NOTE | 2019-06-08 16:40 | NUR ---
AT 1130 PLACED ON 10L HFNC
--- NOTE | 2019-06-08 17:00 | NUR ---
AT BEDSIDE AND DAUGHTER STATUS REPORT GIVEN-DR ESPOSITO AT BEDSIDE AND SPOKE WITH FAMILY REGARDING STATUS PLAN OF CARE
[2019-06-08 18:11] LABS: BASOPHILS 0.2 % (0-2); EOSINOPHILS 0.2 % (0-7); HEMATOCRIT 41.7 % (42.0-54.0); HEMOGLOBIN 13.2 g/dL (13.5-17.5); IMMATURE GRANULOCYTES 2.7 % (0-5); LYMPHOCYTES 6.4 % (15-50); MCH 29.5 pg (26.0-34.0); MCHC 31.7 g/dL (31.0-37.0); MCV 93.3 fL (80.0-100.0); MEAN PLATELET VOLUME 10.1 fL (7.4-10.4); MONOCYTES 7.1 % (2-11); NEUTROPHILS 83.4 % (40-80); PLATELET COUNT 237 10x3/uL (130-400); RBC 4.47 10x6/uL (4.20-6.10); RDW 14.8 % (11.5-14.5); WBC 13.9 10x3/uL (4.8-10.8)
[2019-06-08 18:21] LABS: ANION GAP 23.8 mmol/L (8-16); CALCIUM 7.5 mg/dL (8.5-10.1); CARBON DIOXIDE 21.6 mmol/L (21.0-32.0)
[2019-06-08 18:22] LABS: CREATININE - SERUM 1.5 mg/dL (0.6-1.3); POTASSIUM - SERUM 4.4 mmol/L (3.5-5.1)
[2019-06-08 18:29] LABS: INR 2.41 (0.85-1.17); PROTIME 25.9 SECONDS (11.6-15.0)
--- NOTE | 2019-06-08 18:30 | NUR ---
0700-RECIEVED PER FLOW SHEET-NOTED BIPAP AT 60% PT APPEARS ALERT AND NODS CORRECTLY TO QUESTIONS-R GROIN DRG SOFT AND DRY TO LLIGZ-8052-QP NORRED AT BEDSIDE-NOTED HR 125-SR -DOBUTREX AT 2.5 TURNED OFF DIRECTED-KCL RIDER INUSING AT 50ML/H R PERIPHERAL -L PERIPHERAL INFUSING DOPAMINE AND DOBUTREX-DOPAMINE WEANED TO 4MCG-MEAN >60 0930-DOPAMINE AT 3MC MEAN >60-- DR BLANTON AT BEDSIDE PT ABLE TO EASILY CONVERSE WITH SAME- HR 102-SR- 1030-DR HERNANDEZ AT BEDSIDE-MEAN BP >70-DOPAMINE TURNED OFF DIRECTED -KCL REPLACEMENT CHANGED TO L ARM-PT C/O BURNING TO R ARM-SITE REDENNED AND D/C 1130-DR RAMÍREZ AT BEDSIDE-PT ABLE TO EASILY RESPOND TO QUESTIONS-REMAINS ON BIPAP AT THIS TIME 1230-RT AT [facility]-PT PLACED TO HIGH FLOW AT 10L- 1330-ECHO AT BEDSIDE-PT REMAINS ON HIGH FLOW AT 10L EASILY REPOSITIONS SELF 1355-CALLED NURSE STATED NEEDS TO HAVE BM-CONSENTS TO BEDPAN-PLACED ON SAME 1410-NOTED MONITOR SR 48-ENTERED RM-NON RESPONSIVE -PULSELESS-NO RESP EFFORT-CODE BLUE CALLED 1520-POST CODE BLUE-12 LEAD REPEATED X2-INTUBATED VENT-100% A/C 24-5-DR HERNANDEZ AT BEDSIDE AND SPOKE WITH ON TELEPHONE-DOBUTREX RESUMED AT 2.5 MACG-DOPAMINE RESTARTED AT 5MCG-NIBP 157/74-HR 124-PT NON RESPONSIVE- 1610-HR 48-NO PULSE PALPABLE-CODE BLUE CALLED-DR HERNANDEZ/DESIREE/MOISES PG'D--BICARB 3 AMPS IVP GIVEN DIRECTED BY DR RAMÍREZ-7.24 BE -3.2-DR ARAIZA AT BEDSIDE-SEE CODE BLUE SHEET 1640-FAMILY NOTIFIED AND PT MADE DNR -REMAIN VENT AND CURRENT-SR ON RHYQAEJ-039-PFRN 88/48-LEVOPHED STARTED AT 5MCG-AND TITRATED TO 10MCG-SYS BP INCREASED TO 110-KBRN
[2019-06-08 18:36] LABS: ALBUMIN 1.7 g/dL (3.4-5.0); BILIRUBIN - TOTAL 1.81 mg/dL (0.2-1.3); PROTEIN - SERUM 4.7 g/dL (6.4-8.2)
[2019-06-08 18:53] LABS: D-DIMER-QUANTITATIVE > 20.00 ug/mLFEU (0.20-0.54)
--- NOTE | 2019-06-08 19:40 | NUR ---
IV STARTED TO LEFT HAND WITH 22 GA X 1 ATTEMPT
--- NOTE | 2019-06-08 21:39 | NUR ---
PT'S WAS CALLED AND INFORMED THAT THE PATIENTS B/P AND HR WAS GOING DOWN AND THAT SHE SHOULD TRY TO COME UP TO THE HOSPITAL DUE TO PATIENTS DECLINE AND POSSIBLE DYING, SHE ADVISED THAT SHE WOULD TRY TO GET A WAY UP HERE
--- NOTE | 2019-06-08 21:51 | NUR ---
FREQUENCY CHECKER FOR ADMITTING DR JUSTINE WALKER, SARA WAS CALLED AND INFORMED OF THE PATIENTS LOSS OF PULSE AND BREATHING, SHE WAS TRANSFERRED TO THE ER SO SHE COULD GET THE ER DR TO COME PRONOUNCE.
--- NOTE | 2019-06-08 22:00 | NUR ---
DR HUGO FROM THE ER WAS HERE AT BEDSIDE AND PRONOUCED PATIENT AT THIS TIME.
--- NOTE | 2019-06-08 22:25 | NUR ---
RISK CONSULTING TREASURY DIRECTOR TRAVIS LAROSE CALLED AND NOTIFIED OF , HE RELEASED THE BODY AT THIS TIME.
--- NOTE | 2019-06-08 22:42 | NUR ---
STACIE CALLED AT THIS TIME AND NOTIFIED OF , PT WAS DEFFERREDFOR DONATION, SEE RECORD OF FOR ADDITONAL INFORMATION.
--- NOTE | 2019-06-08 22:50 | NUR ---
[facility] WAS CALLED AT THIS TIME, AND NOTIFIED OF THE .
--- NOTE | 2019-06-09 10:14 | MORECARE ---
CASE MANAGEMENT DISCHARGE SUMMARY PATIENT: DIONNA HOSKINS UNIT: [id number] ADM DATE: 06/07/19 AGE: 78 : 39 SEX: M [facility] AUTHOR: SUNNY AVILA PHYSICIAN: REFERRING PHYSICIAN: DAWSON DO MD DATE OF SERVICE: 06/09/19 Discharge Plan Patient Name: DIONNA HOSKINS [facility] [facility] 1940 Planned Disposition: Anticipated Discharge Date: Discharge Date: 06/08/2019 Expected LOS: Initial Reviewer: [email or web address] Initial Review Date: 06/07/2019 Generated: 06/09/19 11:14 am Patient Name: DIONNA HOSKINS Page 46559 at 1014 All edits/amendments must be made on the electronic document DICTATION DATE: 06/09/19 1014 SKEIN TIER: JAY 06/09/19 1014 RPT#: [id number] DC DATE:06/08/19 STATUS: DIS IN [facility] [address] [facility] [place] [address] END OF REPORT
--- NOTE | 2019-06-09 10:57 | NUR ---
TO COMPLETE CHARTING
--- NOTE | 2019-06-14 16:12 | NUR ---
Per CMS protocol, restraint report logged into data base.
== END 2019-06-08 22:00 | DRG 853 ==
LOC: D.CATH 09:02 → D.CVICU 09:02 → D.CATH 11:00 → D.CVICU 17:35 → D.CATH 17:44 → D.CVICU 06-08 22:00
PROVIDERS: Family Medicine; Internal Medicine Cardiovascular Disease; Internal Medicine Interventional Cardiology; ADMIT Family Medicine; ATTEND Family Medicine
PROC: 4A023N7 Measurement of Cardiac Sampling and Pressure, Left Heart, Percutaneous Approach (ICD-10-PCS; 2019-06-07)
PROC: B2111ZZ Fluoroscopy of Multiple Coronary Arteries using Low Osmolar Contrast (ICD-10-PCS; 2019-06-07)
PROC: B2151ZZ Fluoroscopy of Left Heart using Low Osmolar Contrast (ICD-10-PCS; 2019-06-07)
PROC: 027135Z Dilation of Coronary Artery, Two Arteries with Two Drug-eluting Intraluminal Devices, Percutaneous Approach (ICD-10-PCS; principal; 2019-06-07 11:00)
PROC: 5A12012 Performance of Cardiac Output, Single, Manual (ICD-10-PCS; 2019-06-08)
PROC: 0BH17EZ Insertion of Endotracheal Airway into Trachea, Via Natural or Artificial Opening (ICD-10-PCS; 2019-06-08)
PROC: 5A1935Z Respiratory Ventilation, Less than 24 Consecutive Hours (ICD-10-PCS; 2019-06-08)
PROC: 5A12012 Performance of Cardiac Output, Single, Manual (ICD-10-PCS; 2019-06-08)
DX: A41.9 Sepsis, unspecified organism (principal); I21.4 Non-ST elevation (NSTEMI) myocardial infarction; J96.01 Acute respiratory failure with hypoxia; I50.23 Acute on chronic systolic (congestive) heart failure; G93.41 Metabolic encephalopathy; J69.0 Pneumonitis due to inhalation of food and vomit; E87.1 Hypo-osmolality and hyponatremia; N17.9 Acute kidney failure, unspecified; I95.9 Hypotension, unspecified; E11.65 Type 2 diabetes mellitus with hyperglycemia; I25.10 Atherosclerotic heart disease of native coronary artery without angina pectoris; E78.5 Hyperlipidemia, unspecified; F17.201 Nicotine dependence, unspecified, in remission; I11.0 Hypertensive heart disease with heart failure; R00.0 Tachycardia, unspecified; I46.9 Cardiac arrest, cause unspecified; Z86.73 Personal history of transient ischemic attack (TIA), and cerebral infarction without residual deficits